=== PATIENT | female | born 1960 | race Caucasian/White ===

== ENCOUNTER 2018-07-17 05:16 | Inpatient (IN) ==
--- NOTE | 2018-07-10 08:34 | EKG Report ---
Test Performed on : 07/10/2018 08:21:29 AM Test Reason : PAT Blood Pressure : / mmHG Vent. Rate : 087 BPM Atrial Rate : 087 BPM P-R Int : 168 ms QRS Dur : 152 ms QT Int : 454 ms P-R-T Axes : 052 -01 025 degrees QTc Int : 546 ms Normal sinus rhythm. Possible Left atrial enlargement Right bundle branch block Abnormal ECG No previous ECGs available Unconfirmed Result
[2018-07-10 08:53] LABS: BASO# 0.05 X1000 (0.0-0.2); BASO% 0.8 % (0.0-0.8); EOS# 0.15 X1000 (0.0-0.7); EOS% 2.4 % (0.0-10.0); HEMATOCRIT 42.1 % (37.0-47.0); HEMOGLOBIN 13.4 g/dL (12.0-16.0); LYMPH# 1.27 X1000 (1.2-3.4); LYMPH% 20.1 % (20.5-51.1); MCH 32.2 PG (27-31); MCHC 31.8 g/dL (33-37); MCV 101.2 FL (81-99); MONO# 0.73 X1000 (0.11-0.59); MONO% 11.5 % (1.7-9.3); MPV 10.4 FL (7.4-10.4); NEUT# 4.13 X1000 (1.4-6.5); NEUT% 65.2 % (42.2-75.2); PLT 195 X1000 (130-400); RBC 4.16 XMIL (4.2-5.4); RDW 13.2 % (11.5-14.5); WBC 6.33 X1000 (4.8-10.8)
[2018-07-10 08:55] LABS: URINE SOURCE CLEAN CATCH
[2018-07-10 09:01] LABS: BILIRUBIN URINE NEGATIVE (NEGATIVE); BLOOD URINE NEGATIVE (NEGATIVE); COLOR YELLOW; GLUCOSE URINE NEGATIVE (NEGATIVE); KETONE URINE NEGATIVE (NEGATIVE); LEUKOCYTES URINE NEGATIVE (NEGATIVE); NITRITE URINE NEGATIVE (NEGATIVE); PH URINE 5.5; PROTEIN URINE TRACE mg/dL (NEGATIVE); SP GRAVITY URINE 1.026; TURBIDITY URINE HAZY (CLEAR); UROBILINOGEN URINE 2 mg/dL (NORMAL)
[2018-07-10 09:02] LABS: UR EPITHELIAL CELLS >10 /HPF (<10); URINE BACTERIA 1+ /HPF; URINE RBC <10 /HPF (<10); URINE WBC <10 /HPF (<10)
[2018-07-10 09:03] LABS: INR 0.91; PTT 29.7 Seconds (22.3-41.8)
[2018-07-10 09:48] LABS: AGAP 10; BUN 11 mg/dL (8-22); CALCIUM 9.9 mg/dL (8.8-10.2); CHLORIDE 100 mmol/L (98-107); COSMO 287; CREATININE 0.8 mg/dL (0.5-0.9); ESTIMATED GFR > 60; GLUCOSE 151 mg/dL (70-104); POTASSIUM 3.3 mmol/L (3.5-5.1); SODIUM 143 mmol/L (136-145); TCO2 33 mmol/L (25-35)
[2018-07-17] MEDS ORDERED: KEFZOL 2 GM/D5W 2 GM/50 ML IVPB ONE (05:37)
[2018-07-17] MEDS ORDERED: PEPCID ONE (05:37)
[2018-07-17] MEDS ORDERED: REGLAN ONE (05:37)
[2018-07-17] MEDS ORDERED: COLACE ONE (05:37)
[2018-07-17] MEDS ORDERED: LR 1,000 ML ONE (05:37)
[2018-07-17] MEDS ORDERED: CELEBREX ONE (05:37)
[2018-07-17] MEDS ORDERED: LYRICA ONE (05:37)
[2018-07-17] MEDS ORDERED: XYLOCAINE-MPF 2% ONE (06:44)
[2018-07-17] MEDS ORDERED: DIPRIVAN 1% ONE (06:45)
[2018-07-17] MEDS ORDERED: QUELICIN (DOSE) ONE (06:45)
[2018-07-17] MEDS ORDERED: TORADOL ONE (06:47)
[2018-07-17] MEDS ORDERED: SODIUM CHLORIDE 0.9% ONE (06:47)
[2018-07-17] MEDS ORDERED: CYKLOKAPRON 1,000 MG/NS 1,000 MG/100 ML IVPB ONE (06:47)
[2018-07-17] MEDS ORDERED: EXPAREL 1.3% ONE (06:47)
[2018-07-17] MEDS ORDERED: DURAMORPH ONE (06:47)
[2018-07-17] MEDS ORDERED: MARCAINE 0.25% PF ONE (06:47)
[2018-07-17] MEDS ORDERED: NEOSPORIN G.U. IRRIGANT ONE (06:48)
[2018-07-17] MEDS ORDERED: ZEMURON ONE (07:09)
[2018-07-17] MEDS ORDERED: FENTANYL ONE ×2 (07:20→07:32)
[2018-07-17] MEDS ORDERED: OFIRMEV 1000 MG/ISOTONIC SOLN 1,000 MG/100 ML BOTTLE ONE (07:47)
[2018-07-17] MEDS ORDERED: DECADRON ONE (07:47)
[2018-07-17] MEDS ORDERED: ZOFRAN ONE (07:47)
[2018-07-17 08:09] LABS: URINE SOURCE CATH
[2018-07-17] MEDS ORDERED: NEO-SYNEPHRINE ONE (08:12)
[2018-07-17 08:13] LABS: BILIRUBIN URINE NEGATIVE (NEGATIVE); BLOOD URINE NEGATIVE (NEGATIVE); COLOR YELLOW; GLUCOSE URINE NEGATIVE (NEGATIVE); KETONE URINE NEGATIVE (NEGATIVE); LEUKOCYTES URINE NEGATIVE (NEGATIVE); NITRITE URINE NEGATIVE (NEGATIVE); PROTEIN URINE NEGATIVE (NEGATIVE); TURBIDITY URINE CLEAR (CLEAR); UR EPITHELIAL CELLS <10 /HPF (<10); URINE BACTERIA NEGATIVE /HPF; URINE WBC <10 /HPF (<10); UROBILINOGEN URINE NORMAL (NORMAL)
[2018-07-17] MEDS ORDERED: NS 1,000 ML ONE (09:47)
--- NOTE | 2018-07-17 09:55 | Diag Imaging Result Doc PS360 ---
EXAM: SHOULDER 1 VIEW RIGHT HISTORY: r total shoulder arthroplasty TECHNIQUE: Shoulder single view COMPARISON: None. FINDINGS: There has been orthopedic placement of the right shoulder. There appears to be good positioning. No fracture. No dislocation. Electronically signed by Yogesh Quispe 07/17/2018 9:53 AM
--- NOTE | 2018-07-17 09:56 | OPERATIVE NOTE ---
PROCEDURE DATE: 07/17/2018 PREOPERATIVE DIAGNOSIS: Right glenohumeral arthritis with chronic rotator cuff tear. POSTOPERATIVE DIAGNOSIS: Right glenohumeral arthritis with chronic rotator cuff tear. PROCEDURE: Right reverse total shoulder arthroplasty with DePuy Attune size 12 press-fit stem, a 38+ 6 humeral cup, a 38 eccentric Glenosphere and a standard metaglene. SURGEON: Calista Mistry [employer]: [employer] OPERATOR: Cameron Cornejo RN. ANESTHESIA: General. IV FLUIDS: 1100 mL lactated Ringer. ESTIMATED BLOOD LOSS: 150 mL. COMPLICATIONS: None. INDICATION: 57-year-old female, who is status post previous arthroscopic rotator cuff repair with subsequent arthroscopy and debridement of chronic irreparable rotator cuff tear in [address] Gibbs. Given patient's longevity of symptoms, pain and discomfort and her findings recommendation to proceed with right reverse total shoulder arthroplasty was offered. Risks and benefits of surgery were explained, including the risks of anesthesia, , bleeding, infection, failure to relieve pain, postoperative stiffness, nerve injury, blood clots, and other imponderables. All questions were answered. The patient and family wished to proceed with surgery. DETAILS OF OPERATION: Patient was taken to the operating room and placed supine on the operating table. Once adequate anesthesia was obtained patient was placed in a semi-Mathew beach-chair position. The right shoulder was subsequently prepped and draped in usual sterile fashion. Standard deltopectoral incision was made with skin knife. Medial and lateral skin envelopes were developed. Hemostasis was obtained using electrocautery. The deltopectoral interval was then developed. Pratt retractors were then placed. The attention was then turned to the subscapularis tendon where SS approximately 1 cm medial to its insertion was released. The shoulder was then dislocated anteriorly. Patient had no remnant rotator cuff on the superior and posterior superior aspect. A starting reamer was then passed into the intramedullary canal. This followed by sequential reaming up to a size 10. The intramedullary guide was then placed in position and the proximal humeral cutting block was pinned in position. The humeral head was then resected. A protective disk was then placed. Attention was then turned to the glenoid. Circumferential dissection was then performed with a deep knife. A guide was then placed in position. A guide pin was placed. Reaming was then conducted. The central hole was then dilated. The wound was copiously irrigated with antibiotic pulsatile lavage. A standard metaglene was then impacted in position. Two locking screws were placed and 2 nonlocking screws, had good purchase. The wound was copiously irrigated. The 38 eccentric Glenosphere was then placed in position with the eccentricity placed inferiorly. Attention then turned to the proximal humerus where the size 10 intramedullary guide was placed in position. The proximal this was reamed. There appeared to have loosening with the size 10 therefore reaming was increased to size 12. The wound was copiously irrigated with antibiotic pulsatile lavage. A size 12 Delta Xtend press-fit stem was then impacted had good fit. This placed approximately 15 degrees of retroversion. After this had been performed, the trial cup size was performed 38+ 6 humeral cup appeared to correct size. The trial cup was removed. The wound was copiously irrigated. A 38+ 6 humeral cup was then impacted. Shoulder was reduced and carried through range of motion. Good range of motion good soft tissue balancing. Exparel was placed in deep soft tissue. The wound was copiously irrigated. A #2 FiberWire was used to repair the subscapularis tendon. Appeared to be good repair. Irrigation performed once again. The remaining portion of the Exparel was placed deep soft tissue, as well as the subcutaneous tissue. Irrigation performed once again. After this was performed 2-0 Vicryl was used appears subcutaneous tissue followed by running 2-0 Prolene. Benzoin and Steri-Strips were applied. Adaptic, sterile 4 x 4's, ABD pad, followed by tape was applied. Shoulder immobilizer was placed. Patient tolerated well with no complications. Transferred to recovery room in stable condition. cc: Ronald Powell MD
[2018-07-17] MEDS: DILAUDID ONE ×2 (10:01→10:06)
[2018-07-17] MEDS ORDERED: DUONEB (A & A) INH ONE (10:34)
[2018-07-17] MEDS ORDERED: OXY IR ONE (10:41)
[2018-07-17] MEDS ORDERED: MORPHINE IV PRN ×3 (11:00)
[2018-07-17] MEDS ORDERED: ZOFRAN PO PRN (11:00)
[2018-07-17] MEDS: NS 1,000 ML IV SCH ×2 (11:35→20:34)
[2018-07-17] MEDS ORDERED: DUONEB (A & A) INH SCH (12:15)
[2018-07-17] MEDS ORDERED: CYKLOKAPRON 1,000 MG in NS 100 ML IV ONE (13:00)
[2018-07-17] MEDS: KEFZOL 2 GM/D5W 2 GM/50 ML IVPB IV SCH ×2 (15:22→23:20)
[2018-07-17] MEDS: OXY IR PO PRN ×2 (15:22→20:33)
[2018-07-17] MEDS: GLUCOPHAGE PO SCH ×2 (17:36→20:33)
[2018-07-17] MEDS ORDERED: COMBIVENT RESPIMAT INHALER INH PRN (18:00)
[2018-07-17] MEDS: AMITIZA PO SCH (20:33)
[2018-07-17] MEDS: PERIDEX MT SCH (20:34)
[2018-07-17] MEDS: DUONEB (A & A) INH SCH (23:00)
[2018-07-18] MEDS: OXY IR PO PRN ×2 (06:14→09:05)
--- NOTE | 2018-07-18 06:22 | PROGRESS NOTE ---
DATE: 07/18/2018 SUBJECTIVE: The patient is a pleasant 57-year-old female who is 1 day status post right reverse total shoulder arthroplasty. She is currently sitting in a chair and resting comfortably this morning. OBJECTIVE: The patient's right upper extremity dressing is intact. She is able to flex and extend all her fingers. She is neurovascularly intact distally. LABORATORY DATA: Her labs are pending. IMPRESSION: Postoperative day #1 status post right reverse total shoulder arthroplasty. PLAN: At this point we will plan on discontinuing her Cain and hep locking her IV. We will begin mobilization. We will see how the patient does this morning and would anticipate discharging home later today if she is doing well. We will wean her oxygen and continue with her breathing treatments. cc: Ronald Powell MD
[2018-07-18 06:57] LABS: HEMATOCRIT 37.3 % (37.0-47.0); HEMOGLOBIN 11.6 g/dL (12.0-16.0)
[2018-07-18 07:11] LABS: AGAP 15; BUN 17 mg/dL (8-22); CALCIUM 9.3 mg/dL (8.8-10.2); CHLORIDE 98 mmol/L (98-107); COSMO 288; CREATININE 0.9 mg/dL (0.5-0.9); ESTIMATED GFR > 60; GLUCOSE 228 mg/dL (70-104); POTASSIUM 3.7 mmol/L (3.5-5.1); SODIUM 140 mmol/L (136-145); TCO2 27 mmol/L (25-35)
[2018-07-18] MEDS: DUONEB (A & A) INH SCH ×2 (07:16→11:09)
[2018-07-18] MEDS: NS 1,000 ML IV SCH ×2 (07:53→13:44)
[2018-07-18] MEDS: GLUCOPHAGE PO SCH (08:21)
[2018-07-18] MEDS: PERIDEX MT SCH (08:22)
[2018-07-18] MEDS: AMITIZA PO SCH (08:22)
[2018-07-18] MEDS ORDERED: DEMADEX PO SCH (09:00)
[2018-07-18] MEDS ORDERED: PROTONIX PO SCH (09:00)
[2018-07-18 11:53] VITALS: BP 127/67
[2018-07-18] MEDS ORDERED: PRAVACHOL PO SCH (21:00)
== END 2018-07-18 13:53 | disposition home or self-care (01) | DRG 483 ==
LOC: SURHOLD 05:16 → 4N 08:16
PROVIDERS: ADMIT Orthopaedic Surgery Adult Reconstructive Orthopaedic Surgery; ATTEND Orthopaedic Surgery Adult Reconstructive Orthopaedic Surgery
CPT/HCPCS: 73020; 80048; 81001; 82948; 85014; 85018; 85025; 85610; 85730; 86850; 86900; 86901; 93005; 93010; 94640; 94667; 94762; 94799; 97162; 97530; A9270; C1713; C9290; J0131; J0330; J0690; J1100; J1170; J1885; J2274; J2275; J2370; J2405; J3010; J7030; J7120; Q9974; S0020; XXXXX